=== PATIENT | male | born 1980 | race Caucasian/White ===

== ENCOUNTER 2020-10-20 05:36 | Emergency (ER) | payer BC ==
[2020-10-20] MEDS ORDERED: HYDROCODONE/APAP 7.5/325 MG TAB ONE (06:35)
--- NOTE | 2020-10-20 08:54 | RAD REPORT ---
EXAM DESCRIPTION: MRI - Lumbar Spine Danyell Cueto- 10/20/2020 8:22 am CLINICAL HISTORY: PAIN Pain and radiculopathy COMPARISON: No comparisons FINDINGS: Vertebral body heights are within normal limits. 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 No aggressive marrow pattern is observed. No fracture is suspected. The conus medullaris terminates at a normal level. No thickening of the cauda equina or clumping of n erve roots seen. L1-2 level: No significant findings. L2-3 level: No significant findings. L3-4 level: No significant findings. L4-5 level: Minimal posterior disc bulge with mild facet and ligament flavum hypertrophy. Mild narrow ing of both exit foramina seen. L5-S1 level: Central/right paracentral disc protrusion is present measuring 4 mm in anterior-posterio r dimension. This narrows the right lateral recess mildly. No significant exit foraminal stenosis. IMPRESSION: Central/right paracentral disc protrusion at L5-S1 as described above.
--- NOTE | 2020-10-20 09:37 | ER ---
Nurse's Notes [facility] Name: Mickey Murphy Age: 40 yrs Sex: Male : 1980 Arrival Date: 10/20/2020 Time: 05:41 Bed 5 Private MD: Diagnosis: Sciatica, right side;Sciatica Presentation: 10/20 05:56 Chief complaint: Patient states: I am having pain that almost feels like sciatica, it jb4 swaps sides and only stays in my buttocks. It is on the right side tonight, it has been happening on and off for about a year. Coronavirus screen: Client denies travel out of the [place] in the last 14 days. At this time, the client does not indicate any symptoms associated with coronavirus-19. Ebola Screen: No symptoms or risks identified at this time. Initial Sepsis Screen: Does the patient meet any 2 criteria? No. Patient's initial sepsis screen is negative. Does the patient have a suspected source of infection? No. Patient's initial sepsis screen is negative. Risk Assessment: Do you want to hurt yourself or someone else? Patient reports no desire to harm self or others. Onset of symptoms was October 20, 2020. Transition of care: patient was not received from another setting of care. 05:56 Method Of Arrival: Ambulatory jb4 05:56 Acuity: [place] 4 jb4 Triage Assessment: 05:58 General: Appears in no apparent distress. uncomfortable, Behavior is calm, cooperative, jb4 appropriate for age. Pain: Complains of pain in right gluteus tyron Pain does not radiate. Pain currently is 7 out of 10 on a pain scale. EENT: No signs and/or symptoms were reported regarding the EENT system. Neuro: Level of Consciousness is awake, alert, obeys commands, Oriented to person, place, time, situation. Cardiovascular: Patient's skin is warm and dry. Respiratory: Airway is patent Respiratory effort is even, unlabored, Respiratory pattern is regular, symmetrical. GI: No signs and/or symptoms were reported involving the gastrointestinal system. : No signs and/or symptoms were reported regarding the genitourinary system. Derm: Skin is intact, Skin is pink, warm \T\ dry. Musculoskeletal: Circulation, motion, and sensation intact. Range of motion: intact in all extremities. Historical: - Allergies: 05:58 No Known Allergies; jb4 - Home Meds: 05:58 None [Active]; jb4 - PMHx: 05:58 None; jb4 - PSHx: 05:58 None; jb4 - Immunization history:: Adult Immunizations up to date. - Social history:: Smoking status: Patient denies any tobacco usage or history of. Patient/guardian denies using alcohol, street drugs. Screenin:01 Abuse screen: Denies threats or abuse. Nutritional screening: No deficits noted. jb4 Tuberculosis screening: No symptoms or risk factors identified. Fall Risk None identified. Assessment: 06:01 General: see triage note. jb4 07:03 Reassessment: Patient appears in no apparent distress at this time. Patient and/or jb4 family updated on plan of care and expected duration. Pain level reassessed. Patient is alert, oriented x 3, equal unlabored respirations, skin warm/dry/pink. 08:23 Reassessment: Patient appears in no apparent distress at this time. Patient and/or hb family updated on plan of care and expected duration. Pain level reassessed. Patient is alert, oriented x 3, equal unlabored respirations, skin warm/dry/pink. 09:29 Reassessment: Patient appears in no apparent distress at this time. Patient and/or hb family updated on plan of care and expected duration. Pain level reassessed. Patient is alert, oriented x 3, equal unlabored respirations, skin warm/dry/pink. Vital Signs: 05:56 BP 132 / 83; Pulse 75; Resp 16; Temp 98.3(TE); Pulse Ox 99% on R/A; Weight 72.57 kg jb4 (R); Height 5 ft. 11 in. (180.34 cm) (R); Pain 7/10; 07:00 BP 124 / 78; Pulse 72; Resp 16; Pulse Ox 97% on R/A; jb4 09:29 BP 114 / 69; Pulse 68; Resp 16; Pulse Ox 97% on R/A; hb 05:56 Body Mass Index 22.32 (72.57 kg, 180.34 cm) 4 ED Course: 05:41 Patient arrived in ED. 05:56 Jasper Sanford, RN is Primary Nurse. [facility] 05:58 Triage completed. jb4 05:58 Arm band placed on right wrist. jb4 06:01 Rinku Coates MD is Attending Physician. pkl 06:01 Patient has correct armband on for positive identification. Placed in gown. Bed in low jb4 position. Call light in reach. Side rails up X 1. Pulse ox on. NIBP on. 07:22 Attending Physician role handed off by Rinku Coates MD kdr 07:22 Nas Chaudhry MD is Attending Physician. kdr 08:01 Primary Nurse role handed off by Jasper Sanford, RN em1 08:10 MRI Lumbar Spine wo Con In Process Unspecified. EDMS 09:29 Justyna Macias RN is Primary Nurse. hb 09:58 No provider procedures requiring assistance completed. IV discontinued, intact, hb bleeding controlled, No redness/swelling at site. Administered Medications: 06:18 Drug: [place] (HYDROcodone-acetaminophen) (7.5 mg-325 mg) 1 tabs Route: PO; wh 07:04 Follow up: Response: No adverse reaction; Marked relief of symptoms; Pain is decreased; jb4 RASS: Alert and Calm (0) 09:56 Drug: predniSONE 60 mg Route: PO; hb 09:56 Follow up: Response: Medication administered at discharge. hb 09:56 Drug: Motrin (ibuprofen) 800 mg Route: PO; hb 09:56 Follow up: Response: Medication administered at discharge. hb Outcome: 09:36 Discharge ordered by . kdr 09:58 Discharged to home ambulatory. hb 09:58 Condition: stable 09:58 Discharge instructions given to patient, Instructed on discharge instructions, follow up and referral plans. medication usage, Demonstrated understanding of instructions, follow-up care, medications, Prescriptions given X 2. 09:58 Patient left the ED. hb Signatures: Dispatcher [employer] EDCO Rinku Coates MD MD pkNas Sullivan MD MD [facility] Dayna Woody Eric em1 Justyna Macias, RN [place] Jasper Sanford, [place] EUCEDA jb4 Alexandria Grayson RN RN
--- NOTE | 2020-10-20 09:38 | EDPHYS ---
Physician Documentation [facility] Name: Mickey Murphy Age: 40 yrs Sex: Male : 1980 Arrival Date: 10/20/2020 Time: 05:41 Bed 5 Private MD: ED Physician Nas Chaudhry HPI: 10/20 06:16 This 40 yrs old Male presents to ER via Ambulatory with complaints of BUTTOX pkl PAIN. 06:16 The patient presents with pain that is acute. The symptoms are located in the right pkl lower back and right buttock. The pain radiates to the right buttock. Onset: The symptoms/episode began/occurred just prior to arrival. The patient has experienced similar episodes in the past, a few times, Patient said pain can be either side of the buttockks. Historical: - Allergies: 05:58 No Known Allergies; jb4 - Home Meds: 05:58 None [Active]; jb4 - PMHx: 05:58 None; jb4 - PSHx: 05:58 None; jb4 - Immunization history:: Adult Immunizations up to date. - Social history:: Smoking status: Patient denies any tobacco usage or history of. Patient/guardian denies using alcohol, street drugs. ROS: 06:16 Eyes: Negative for injury, pain, redness, and discharge, ENT: Negative for injury, pkl pain, and discharge, Neck: Negative for injury, pain, and swelling, Cardiovascular: Negative for chest pain, palpitations, and edema, Respiratory: Negative for shortness of breath, cough, wheezing, and pleuritic chest pain, Abdomen/GI: Negative for abdominal pain, nausea, vomiting, diarrhea, and constipation. 06:16 Back: Positive for pain with movement, of the lower back. 06:16 : Negative for urinary symptoms. 06:16 MS/extremity: Negative for acute changes. 06:16 Skin: Negative for rash. 06:16 Neuro: Negative for altered mental status, loss of consciousness. Exam: 06:16 Head/Face: Normocephalic, atraumatic. Eyes: Pupils equal round and reactive to light, pkl extra-ocular motions intact. Lids and lashes normal. Conjunctiva and sclera are non-icteric and not injected. Cornea within normal limits. Periorbital areas with no swelling, redness, or edema. ENT: Nares patent. No nasal discharge, no septal abnormalities noted. Tympanic membranes are normal and external auditory canals are clear. Oropharynx with no redness, swelling, or masses, exudates, or evidence of obstruction, uvula midline. Mucous membranes moist. Neck: Trachea midline, no thyromegaly or masses palpated, and no cervical lymphadenopathy. Supple, full range of motion without nuchal rigidity, or vertebral point tenderness. No Meningismus. Chest/axilla: Normal chest wall appearance and motion. Nontender with no deformity. No lesions are appreciated. Cardiovascular: Regular rate and rhythm with a normal S1 and S2. No gallops, murmurs, or rubs. Normal PMI, no JVD. No pulse deficits. Respiratory: Lungs have equal breath sounds bilaterally, clear to auscultation and percussion. No rales, rhonchi or wheezes noted. No increased work of breathing, no retractions or nasal flaring. Abdomen/GI: Soft, non-tender, with normal bowel sounds. No distension or tympany. No guarding or rebound. No evidence of tenderness throughout. 06:16 Back: pain, that is mild, of the lower back, Straight leg raises: of both lower extremities does not illicit pain. 06:16 : Exam negative for acute changes. 06:16 Musculoskeletal/extremity: Exam is negative for acute changes. 06:16 Skin: Exam negative for rash. 06:16 Neuro: Orientation: is normal, Mentation: is normal, Cranial nerves: grossly normal, Cerebellar function: is grossly normal, Motor: is normal. Vital Signs: 05:56 BP 132 / 83; Pulse 75; Resp 16; Temp 98.3(TE); Pulse Ox 99% on R/A; Weight 72.57 kg jb4 (R); Height 5 ft. 11 in. (180.34 cm) (R); Pain 7/10; 07:00 BP 124 / 78; Pulse 72; Resp 16; Pulse Ox 97% on R/A; jb4 09:29 BP 114 / 69; Pulse 68; Resp 16; Pulse Ox 97% on R/A; hb 05:56 Body Mass Index 22.32 (72.57 kg, 180.34 cm) jb4 MDM: 06:01 Patient medically screened. pkl 09:43 Data reviewed: vital signs, nurses notes, lab test result(s), radiologic studies. kdr Counseling: I had a detailed discussion with the patient and/or guardian regarding: the historical points, exam findings, and any diagnostic results supporting the discharge/admit diagnosis, lab results, radiology results, the need for outpatient follow up. Response to treatment: the patient's symptoms have mildly improved after treatment. 10/20 06:15 Order name: MRI Lumbar Spine wo Con; Complete Time: 09:22 pkl Administered Medications: 06:18 Drug: [place] (HYDROcodone-acetaminophen) (7.5 mg-325 mg) 1 tabs Route: PO; 07:04 Follow up: Response: No adverse reaction; Marked relief of symptoms; Pain is decreased; jb4 RASS: Alert and Calm (0) 09:56 Drug: predniSONE 60 mg Route: PO; hb 09:56 Follow up: Response: Medication administered at discharge. hb 09:56 Drug: Motrin (ibuprofen) 800 mg Route: PO; hb 09:56 Follow up: Response: Medication administered at discharge. hb Disposition: 10/20/20 09:36 Discharged to Home. Impression: Sciatica, right side, Sciatica. - Condition is Stable. - Discharge Instructions: Sciatica, [id number], Radicular Pain. - Prescriptions for Diclofenac Sodium 75 mg Oral Tablet Sustained Release - take 1 tablet by ORAL route 2 times per day; 30 tablet. Medrol (Chet) 4 mg Oral Tablets, Dose Pack - take 1 tablet by ORAL route as directed - follow package instructions; 1 packet. - Medication Reconciliation Form, Thank You Letter form. - Follow up: Private Physician; When: 2 - 3 days; Reason: If symptoms return, Further diagnostic work-up, Recheck today's complaints, Continuance of care, Re-evaluation by your physician. - Problem is an acute exacerbation. - Symptoms have improved. Signatures: Dispatcher [employer] EDMS Rinku Coates MD MD pkl Rittger, Kevin, MD MD kdr Baxter, Heather, Jasper Lorenzana RN, RN [place] jb4 Alexandria Grayson RN RN Corrections: (The following items were deleted from the chart) 09:37 09:36 10/20/2020 09:36 Discharged to Home. Impression: Sciatica, right side. Condition kdr is Stable. Forms are Medication Reconciliation Form, Thank You Letter, Antibiotic Education, Prescription Opioid Use. Follow up: Private Physician; When: 2 - 3 days; Reason: If symptoms return, Further diagnostic work-up, Recheck today's complaints, Continuance of care, Re-evaluation by your physician. Problem is an acute exacerbation. Symptoms have improved. kdr 09:58 09:37 10/20/2020 09:36 Discharged to Home. Impression: Sciatica, right side; Sciatica. hb Condition is Stable. Forms are Medication Reconciliation Form, Thank You Letter, Antibiotic Education, Prescription Opioid Use. Follow up: Private Physician; When: 2 - 3 days; Reason: If symptoms return, Further diagnostic work-up, Recheck today's complaints, Continuance of care, Re-evaluation by your physician. Problem is an acute exacerbation. Symptoms have improved. kdr
[2020-10-20 10:03] VITALS: TEMP 98.3
[2020-10-20 10:04] VITALS: O2SAT 97
[2020-10-20 10:05] VITALS: BP 114/69
[2020-10-20] MEDS ORDERED: IBUPROFEN 200 MG TAB PO ONE (10:10)
[2020-10-20] MEDS ORDERED: predniSONE 20 MG TAB ONE (10:10)
== END 2020-10-20 09:58 | disposition home or self-care (01) ==
LOC: ER 05:36
DX: M54.31 Sciatica, right side (principal)
CPT/HCPCS: 72148; 99284; J7512